=== PATIENT | female | born 1940 | race Caucasian/White ===

== ENCOUNTER 2017-03-01 11:20 | Day surgery (SDC) | payer MEDICARE, OTHER ==
[~2017-03-01] VITALS: Ht 165.1 cm; Wt 96.6 kg
[~2017-03-01 11:20] MED LIST: 0.9% Sodium Chloride 1,000 ML IV SCH; ATRV10T PO; BUPR100T7 PO; CHOL200025 PO; DONE10TA42 PO; FISH12002 PO; LATA2.5D5 OCULAR; LISI-571 PO; MTC5T PO; MULT-1018 PO; OMEP20TA24 PO; SERT25TA6 PO; Sodium Chloride LOK Flush 10 mL Syringe IV PRN; fentaNYL-PF 50 mCg/mL 2 mL Inj IVPUSH PRN
[2017-03-01 11:50] VITALS: BP 150/82; PULSE 63; RESP 14; O2SAT 97
--- NOTE | 2017-03-01 12:43 | PCM.ENDEGD ---
EGD Date of Service: Mar 01, 2017 Physician Buddy Bell MD Pre Procedure Diagnosis: Dysphagia Post Procedure Dx & Findings: Wide open Schatzki's ring gastritis with small gastric ulcer Procedure Esophagogastroduodenoscopy PROCEDURE IN DETAIL: After proper sedation, Olympus video endoscope was inserted into patient's mouth and esophagus was successfully intubated. Scope introduced esophagus. Esophagus showed normal shiny whitish mucosa consistent with squamous cell component. Z line was at 40 cm from the incisors. Nonobstructing Schatzki's ring noted. Shallow. Biopsies obtained. Scope further advanced to the stomach. Stomach showed normal shiny mucosa with normal appearing rugae folds without any ulcer mass erosion. However in the antrum, mild deformity noted as well as a 3 mm ulcer with surrounding inflammation and edema about a centimeter or two centimeters in size. Biopsies were obtained. Surrounding deformity and mild edema inflammation was noted. Biopsies were obtained. His biopsies were placed in the same bottle as the gastric ulcer. Cardia fundus body antrum pylorus were all visualized. Retroflexion was done. Stomach was easily inflated and deflatable using air. Scope further advanced to the distal duodenum. Duodenum revealed normal villous structures with normal appearing folds without any mass ulcer erosion. Impression Nonobstructing Schatzki's ring status post biopsy Gastritis with gastric ulcer status post biopsy. Recommendation Prilosec Presedation Assessment Risks and Benefits Informed consent was obtained from the patient after all risks and benefits including but not limited to drug reaction, infection, pain, bleeding, perforation, as well as alternatives were discussed. Patient monitoring Continuous pulse oximetry, cardiac monitoring, blood pressure monitoring, IV access, and oxygen at 2L per nasal cannula. Periprocedural Fentanyl: Fentanyl 100mcg Incrementally Midazolam: Midazolam 5mg Incrementally Complications There were no periprocedural complications identified. Post Procedure Plan Post Procedure Recommendations 1. Restrict activities today. 2. Resume normal activities in the morning. 3. Resume medications. 4. GERD behavioral modification: - Avoid fatty, acidic, spicy, large meals - Do not lie down after meals - Do not eat or drink anything for at least 2 1/2 hours before going to bed at night - Discontinue tobacco and alcohol - Decrease or avoid caffeine - Avoid chocolate and mints - Decrease weight - Avoid aspirin and non steroidal anti-inflammatory agents (NSAID) such as Aleve, Advil, Mobic, Naproxen, Ibuprofen, etc 5. Add proton pump inhibitor. Take 30 minutes before 1st meal of the day. 6. Patient informed of normal post procedure side effects as bloating, drowsiness, blood streaking in the stool 7. If gastric biopsy reveal H.pylori, continue with appropriate treatment 8. If small bowel biopsy reveals celiac, continue with appropriate treatment 9. Please don't hesitate to call me with any questions Buddy Bell MD Mar 01, 2017 12:43
[2017-03-01 12:49] VITALS: BP 121/71; PULSE 59; RESP 16; O2SAT 93
[2017-03-01 12:59] VITALS: BP 138/63; PULSE 61; RESP 16; O2SAT 99
[2017-03-01 13:09] VITALS: BP 145/65; PULSE 67; RESP 16; O2SAT 99
[2017-03-01 13:17] VITALS: BP 170/68; PULSE 59; RESP 16; O2SAT 100
--- NOTE | 2017-03-05 11:41 | PATH ---
SURGICAL PATHOLOGY Attending Physician:Buddy Bell M.D. CASE STATUS: Signed Out PATIENT NAME: SHAY PEÑA PID: [id number] : 1940 DATE COLLECTED:03/01/2017 22:13 SPECIMEN: 1: Gastric, Biopsy 2: Esophagus, Biopsy CLINICAL HISTORY: 1). GASTRIC BIOPSY 2). SCHATZKI RING BIOPSY FINAL DIAGNOSIS: 1.GASTRIC BIOPSY: REACTIVE GASTROPATHY, ANTRAL AND BODY MUCOSA. Negative for Helicobacter organisms on H&E stains. Negative for intestinal metaplasia. Negative for dysplasia and malignancy. 2.SCHATKZI RING BIOPSY: SQUAMOUS MUCOSA WITH NO DIAGNOSTIC ALTERATIONS. Negative for intestinal/Justin' s metaplasia. Negative for dysplasia and malignancy. ICD10 K29.70 GROSS DESCRIPTION: Received are two formalin-filled containers, each labeled with the patient's name. 1. Received in formalin, labeled with the patient's name and "gastric BX" are two fragments of palma soft tissue ranging in size from 0.2 x 0.1 x 0.1 cm to 0.2 x 0.2 x 0.2 cm. All fragments are totally submitted in cassette 1A. 2. Received in formalin, labeled with the patient's name and "Schatzki ring biopsy" is one fragment of palma soft tissue measuring 0.1 x 0.1 x 0.1 cm. The fragment is totally submitted in cassette 2A. ([id number]) MICRO DESCRIPTION: See diagnosis. ICD-9 CODES: CPT CODES: 1: 86844 2: 67181 Electronically Signed Out Sita Tan MD [facility] [address], [place] [address] Technical component performed at [facility], [address], [place], [address]
== END 2017-03-01 23:59 | disposition home or self-care (01) ==
LOC: END 11:20
PROVIDERS: ATTEND Internal Medicine
DX: K29.70 Gastritis, unspecified, without bleeding (principal); K31.9 Disease of stomach and duodenum, unspecified; K22.2 Esophageal obstruction; R13.10 Dysphagia, unspecified; I10 Essential (primary) hypertension; E78.5 Hyperlipidemia, unspecified; F03.90 Unspecified dementia, unspecified severity, without behavioral disturbance, psychotic disturbance, mood disturbance, and anxiety; F32.9 Major depressive disorder, single episode, unspecified; E66.9 Obesity, unspecified; Z85.3 Personal history of malignant neoplasm of breast; Z86.73 Personal history of transient ischemic attack (TIA), and cerebral infarction without residual deficits; Z68.35 Body mass index [BMI] 35.0-35.9, adult
CPT/HCPCS: 43239; G0500; J2250; J3010; J7030